=== PATIENT | male | born 1965 | race Caucasian/White ===

== ENCOUNTER 2016-06-22 09:04 | Observation (INO) | payer OTHER ==
[2016-06-22] MEDS ORDERED: Sodium Chloride 0.9% 10 ML Syringe FLUSH PRN (10:11)
[2016-06-22] MEDS ORDERED: Sodium Chloride 0.9% 1,000 ML IV SCH (10:15)
[2016-06-22] MEDS ORDERED: Propofol 200 MG/20 ML SDV ONE (10:47)
[2016-06-22] MEDS ORDERED: Midazolam 1 MG/ML 2 ML SDV ONE (10:47)
[2016-06-22] MEDS ORDERED: fentaNYL 100 MCG/2 ML SDV ONE (10:47)
--- NOTE | 2016-06-22 10:56 | EDM.PDOC ---
ED HPI GI/ABDOMINAL - General Chief Complaint: Gastrointestinal Problem Stated Complaint: LIGHT HEADED/BLACK STOOLS/VOMITING Time Seen by Provider: 06/22/16 09:30 Source: Reports: Patient, Family History Limitations: Reports: No limitations - History of Present Illness INITIAL COMMENTS - FREE TEXT/NARRATIVE: This patient comes to the ER because he just felt really bad. He has a history of esophageal varices and previous upper GI bleed. Last night he had a large melanotic stool. Also had a melanotic stool about a week ago. This morning at 4 AM he vomited some black material. Later this morning his said he seemed really sweaty and his face was white as a sheet. Patient says he feels a little bit better lying down right now but not much more. Last summer he had an upper GI bleeding required blood transfusions had some esophageal varices which were banded. He had a followup EGD in about January last year and the bands were gone everything seemed stable. 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 He does say he has a little bit of chest discomfort in the right upper part of the chest but that's chronic no different today. He also notes a sore throat for about the past 3 months he has been hoarse and he coughs up a lot of stuff every day and he's supposed to see an ENT doctor for that. - Related Data Allergies/ADRs: Allergies Allergy/AdvReac Type Severity Reaction Status Date / Time No Known Allergies Allergy Verified 09/24/15 12:26 Home Meds: Home Meds Fluticasone Furoate [Flonase Sensimist] 15.8 ml NS DAILY 06/22/16 [History] Metoprolol Succinate [Toprol XL] 400 mg PO DAILY 06/22/16 [History] glipiZIDE [Glipizide] 10 mg PO BID 06/22/16 [History] metFORMIN [Glucophage] 1,000 mg PO BID 06/22/16 [History] Past Medical History HEENT History: Reports: Impaired vision Cardiovascular History: Reports: Afib, Heart Failure, Hypertension, Other (see below) Other Cardiovascular History: mitral valve insufficiency, hypertrophic cardiomyopathy Gastrointestinal History: Reports: Other (see below) Other Gastrointestinal History: GI bleed September 2015 Musculoskeletal History: Reports: Gout Endocrine/Metabolic History: Reports: Diabetes, type II - Infectious Disease History Infectious Disease History: Reports: Chicken pox, Measles, Mumps - Past Surgical History GI Surgical History: Reports: EGD Social & Family History - Tobacco Use Smoking Status *Q: Current Every Day Smoker Years of Tobacco use: 30 Packs/Tins Daily: 0.5 - Caffeine Use Caffeine Use: Reports: Coffee, Soda - Recreational Drug Use Recreational Drug Use: No ED ROS GENERAL - Review of Systems Review Of Systems: ROS reveals no pertinent complaints other than HPI. ED EXAM, GI/ABD - Physical Exam Exam: See Below Exam Limited By: No limitations General Appearance: alert, WD/WN, moderate distress, other (Face is pink but low blood pressure is noted. He's very diaphoretic.) Eyes: bilateral: normal appearance, EOMI Throat/Mouth: Normal inspection, Other (Voice worse) Head: atraumatic Neck: normal inspection Respiratory/Chest: lungs clear Cardiovascular: normal peripheral pulses, regular rate, rhythm GI/Abdominal: soft, non tender Rectal (Males) Exam: Deferred Extremities: normal inspection Neurological: alert, oriented, CN II-XII intact, no motor/sensory deficits Psychiatric: normal affect Skin Exam: Warm, Diaphoretic Course - Vital Signs Last Recorded V/S: Last Vital Signs Temp 36.6 C 06/22/16 12:05 Pulse 99 06/22/16 12:10 Resp 17 06/22/16 12:10 BP 101/73 06/22/16 12:10 Pulse Ox 99 06/22/16 12:10 - Orders/Labs/Meds Orders: Active Orders 24 hr Category Date Time Status Patient Status [ADT] Routine ADT 06/22/16 11:24 Active EKG Documentation Completion [RC] ASDIRECTED Care 06/22/16 10:16 Active Intake and Output [RC] QSHIFT Care 06/22/16 11:24 Active Oxygen Therapy [RC] PRN Care 06/22/16 11:24 Active Pulse Oximetry [RC] CONTINUOUS Care 06/22/16 11:24 Active Up ad Osiris [RC] ASDIRECTED Care 06/22/16 11:19 Active Vital Signs [RC] PER UNIT ROUTINE Care 06/22/16 11:24 Active Nothing Per Oral Diet [DIET] Diet 06/22/16 Lunch Active BASIC METABOLIC PANEL,BMP [CHEM] AM Lab 06/23/16 05:11 Ordered PATIENT RETYPE [BBK] Stat Lab 06/22/16 10:15 Results RED BLOOD CELLS LP [BBK] Stat Lab 06/22/16 10:15 Results TYPE AND SCREEN [BBK] Stat Lab 06/22/16 10:15 Results UA W/MICROSCOPIC [URIN] Urgent Lab 06/22/16 10:10 Uncollected Acetaminophen [Tylenol] Med 06/22/16 11:19 Active 650 mg PO Q6H PRN Benzocaine/Cetylpyrd/Menthol [Cepacol Sore Throat] Med 06/22/16 11:19 Active 1 lozenge MUCMEM Q1H PRN Docusate Sodium [Colace] Med 06/22/16 11:19 Active 100 mg PO BID PRN Docusate Sodium/Sennosides [Senna Plus] Med 06/22/16 11:19 Active 1 tab PO BID PRN Promethazine [Phenergan] Med 06/22/16 11:19 Active 25 mg IM Q6H PRN Sodium Chloride 0.9% [Normal Saline] 1,000 ml Med 06/22/16 11:30 Active IV ASDIRECTED Sodium Chloride 0.9% [Saline Flush] Med 06/22/16 10:11 Active 10 ml FLUSH ASDIRECTED PRN Zolpidem [Ambien] Med 06/22/16 11:19 Active 5 mg PO BEDTIME PRN diphenhydrAMINE [Benadryl] Med 06/22/16 11:19 Active 50 mg IVPUSH Q4H PRN Saline Lock Insert [OM.PC] Urgent Oth 06/22/16 10:10 Ordered Resuscitation Status Routine Resus Stat 06/22/16 11:19 Ordered EKG 12 Lead [EK] Urgent Ther 06/22/16 10:16 Ordered Medication Orders Acetaminophen (Tylenol) 650 mg PO Q6H PRN PRN Reason: Pain (mild 1-3) Benzocaine/Menthol (Cepacol Sore Throat) 1 lozenge MUCMEM Q1H PRN PRN Reason: Sore Throat Dextrose (Glutose 15) 15 gm PO ASDIRECTED PRN PRN Reason: HYPOGLYCEMIA Dextrose/Water (Dextrose 50% In Water) 50 ml IVPUSH ASDIRECTED PRN PRN Reason: HYPOGLYCEMIA Diphenhydramine HCl (Benadryl) 50 mg IVPUSH Q4H PRN PRN Reason: Itching Docusate Sodium (Colace) 100 mg PO BID PRN PRN Reason: Constipation Fluticasone Propionate (Flonase) 0 gm MCKINLEY DAILY NAINA Glipizide (Glucotrol) 10 mg PO BID NAINA Glucagon (Glucagen) 1 mg IM ASDIRECTED PRN PRN Reason: HYPOGLYCEMIA Sodium Chloride (Normal Saline) 1,000 mls @ 125 mls/hr IV ASDIRECTED NAINA Insulin Aspart (Novolog) 0 - 8 unit SUBCUT QID PRN; Protocol PRN Reason: MEDIUM CORRECTIONAL DOSE Last Admin: 06/22/16 12:06 Dose: 3 units Metformin HCl (Glucophage) 1,000 mg PO [facility]ALS [facility] Promethazine HCl (Phenergan) 25 mg IM Q6H PRN PRN Reason: Nausea Senna/Docusate Sodium (Senna Plus) 1 tab PO BID PRN PRN Reason: Constipation Sodium Chloride (Saline Flush) 10 ml FLUSH ASDIRECTED PRN PRN Reason: Keep Vein Open Zolpidem Tartrate (Ambien) 5 mg PO BEDTIME PRN PRN Reason: Insomnia Labs: Laboratory Tests 06/22/16 06/22/16 06/22/16 Range/Units 10:10 10:15 10:15 WBC 14.1 H (4.5-11.0) K/uL RBC 4.35 (4.30-5.90) M/uL Hgb 12.0 D (12.0-15.0) g/dL Hct 37.2 L (40.0-54.0) % MCV 86 (80-98) fL MCH 28 (27-31) pg MCHC 32 (32-36) % Plt Count 247 (150-400) K/uL Neut % (Auto) 64 (36-66) % Lymph % (Auto) 21 L (24-44) % [place] % (Auto) 10 H (2-6) % Eos % (Auto) 4 (2-4) % Baso % (Auto) 1 (0-1) % PT 12.9 H (9.5-12.0) sec INR 1.21 H (0.80-1.20) APTT 26.3 L (27.0-36.0) sec Sodium 141 (140-148) mmol/L Potassium 4.9 (3.6-5.2) mmol/L Chloride 104 (100-108) mmol/L Carbon Dioxide 21 (21-32) mmol/L Anion Gap 15.9 H (5.0-14.0) mmol/L BUN 33 H D (7-18) mg/dL Creatinine 0.9 (0.8-1.3) mg/dL Est Cr Clr Drug Dosing 112.90 mL/min Estimated GFR (MDRD) > 60 (>60) Glucose 215 H (74-106) mg/dL Calcium 8.8 (8.5-10.1) mg/dL Total Bilirubin 1.4 H (0.2-1.0) mg/dL AST 26 (15-37) U/L ALT 37 (12-78) U/L Alkaline Phosphatase 53 (46-116) U/L Troponin I < 0.017 (0.000-0.056) ng/mL Total Protein 7.8 (6.4-8.2) g/dL Albumin 3.5 (3.4-5.0) g/dL Globulin 4.3 H (2.3-3.5) g/dL Albumin/Globulin Ratio 0.8 L (1.2-2.2) Blood Type Gel Antibody Screen Crossmatch 06/22/16 Range/Units 10:15 WBC (4.5-11.0) K/uL RBC (4.30-5.90) M/uL Hgb (12.0-15.0) g/dL Hct (40.0-54.0) % MCV (80-98) fL MCH (27-31) pg MCHC (32-36) % Plt Count (150-400) K/uL Neut % (Auto) (36-66) % Lymph % (Auto) (24-44) % [place] % (Auto) (2-6) % Eos % (Auto) (2-4) % Baso % (Auto) (0-1) % PT (9.5-12.0) sec INR (0.80-1.20) APTT (27.0-36.0) sec Sodium (140-148) mmol/L Potassium (3.6-5.2) mmol/L Chloride (100-108) mmol/L Carbon Dioxide (21-32) mmol/L Anion Gap (5.0-14.0) mmol/L BUN (7-18) mg/dL Creatinine (0.8-1.3) mg/dL Est Cr Clr Drug Dosing mL/min Estimated GFR (MDRD) (>60) Glucose (74-106) mg/dL Calcium (8.5-10.1) mg/dL Total Bilirubin (0.2-1.0) mg/dL AST (15-37) U/L ALT (12-78) U/L Alkaline Phosphatase (46-116) U/L Troponin I (0.000-0.056) ng/mL Total Protein (6.4-8.2) g/dL Albumin (3.4-5.0) g/dL Globulin (2.3-3.5) g/dL Albumin/Globulin Ratio (1.2-2.2) Blood Type A POSITIVE Gel Antibody Screen Negative Crossmatch See Detail Meds: Medications Generic Name Dose Route Start Last Admin Trade Name Freq PRN Reason Stop Dose Admin Acetaminophen 650 mg 06/22/16 11:19 Tylenol PO Q6H PRN Pain (mild 1-3) Benzocaine/Menthol 1 lozenge 06/22/16 11:19 Cepacol Sore Throat MUCMEM Q1H PRN Sore Throat Dextrose 15 gm 06/22/16 12:11 Glutose 15 PO ASDIRECTED PRN HYPOGLYCEMIA Dextrose/Water 50 ml 06/22/16 12:11 Dextrose 50% In Water IVPUSH ASDIRECTED PRN HYPOGLYCEMIA Diphenhydramine HCl 50 mg 06/22/16 11:19 Benadryl IVPUSH Q4H PRN Itching Docusate Sodium 100 mg 06/22/16 11:19 Colace PO BID PRN Constipation Fluticasone Propionate 0 gm 06/23/16 09:00 Flonase MCKINLEY DAILY NAINA Glipizide 10 mg 06/22/16 21:00 Glucotrol PO BID NAINA Glucagon 1 mg 06/22/16 12:11 Glucagen IM ASDIRECTED PRN HYPOGLYCEMIA Sodium Chloride 1,000 mls @ 125 mls/hr 06/22/16 11:30 Normal Saline IV ASDIRECTED NAINA Insulin Aspart 0 - 8 unit 06/22/16 12:03 06/22/16 12:06 Novolog SUBCUT 3 units QID PRN Administration MEDIUM CORRECTIONAL DOSE Protocol Metformin HCl 1,000 mg 06/22/16 17:00 Glucophage PO BIDMEALS NAINA Promethazine HCl 25 mg 06/22/16 11:19 Phenergan IM Q6H PRN Nausea Senna/Docusate Sodium 1 tab 06/22/16 11:19 Senna Plus PO BID PRN Constipation Sodium Chloride 10 ml 06/22/16 10:11 Saline Flush FLUSH ASDIRECTED PRN Keep Vein Open Zolpidem Tartrate 5 mg 06/22/16 11:19 Ambien PO BEDTIME PRN Insomnia Discontinued Medications Generic Name Dose Route Start Last Admin Trade Name Freq PRN Reason Stop Dose Admin Fentanyl Confirm 06/22/16 10:47 Sublimaze Administered 06/22/16 10:48 Dose 100 mcg .ROUTE .STK-MED ONE Sodium Chloride 1,000 mls @ 999 mls/hr 06/22/16 10:15 Normal Saline IV ASDIRECTED NAINA Midazolam HCl Confirm 06/22/16 10:47 Versed 1 Mg/Ml Administered 06/22/16 10:48 Dose 2 mg .ROUTE .STK-MED ONE Propofol Confirm 06/22/16 10:47 Diprivan 20 Ml Administered 06/22/16 10:48 Dose 200 mg .ROUTE .STK-MED ONE - Re-Assessments/Exams Free Text/Narrative Re-Assessment/Exam: 06/22/16 10:56 An IV was established and we began a 1 L bolus of IV normal saline. After only about 200 mL his blood pressure to come up to about 150. Initially we did put his head down somewhat and that alone helped even prior to the IV fluids. Initial hemoglobin is a little bit above 12. I alerted Dr. Covarrubias and Dr. Patrick Nguyen like to go ahead and take him back and scope him now. He is hemoglobin looks like it is stable his blood pressure now is stable we did have 2 units which we were doing a cross match but will hold them. An EKG was done so far I don't have an old to compare with but I don't see anything that looks like an acute [place]. A troponin and other labs are pending Dr. Nguyen is aware of his history his cardiac history. We aren't obtaining records from [place]. Free Text/Narrative Re-Assessment/Exam: 06/22/16 12:16 Dr. Nguyen came to see this patient in the emergency department and took him back to do an emergency endoscopy. The patient appear to be hemodynamically stable upon leaving the ER. Dr. Nguyen he found evidence of a recent esophageal bleeding but nothing active. He admitted him and will observe him overnight Departure - Departure Time of Disposition: 12:17 Disposition: Admitted As Inpatient 66 Condition: fair Clinical Impression: Upper GI bleed - My Orders Last 24 Hours: My Active Orders 06/22/16 10:10 UA W/MICROSCOPIC [URIN] Urgent Saline Lock Insert [OM.PC] Urgent 06/22/16 10:11 Sodium Chloride 0.9% [Saline Flush] 10 ml FLUSH ASDIRECTED PRN 06/22/16 10:15 PATIENT RETYPE [BBK] Stat RED BLOOD CELLS LP [BBK] Stat TYPE AND SCREEN [BBK] Stat 06/22/16 10:16 EKG Documentation Completion [RC] ASDIRECTED EKG 12 Lead [EK] Urgent - Assessment/Plan Last 24 Hours: My Active Orders 06/22/16 10:10 UA W/MICROSCOPIC [URIN] Urgent Saline Lock Insert [OM.PC] Urgent 06/22/16 10:11 Sodium Chloride 0.9% [Saline Flush] 10 ml FLUSH ASDIRECTED PRN 06/22/16 10:15 PATIENT RETYPE [BBK] Stat RED BLOOD CELLS LP [BBK] Stat TYPE AND SCREEN [BBK] Stat 06/22/16 10:16 EKG Documentation Completion [RC] ASDIRECTED EKG 12 Lead [EK] Urgent
[2016-06-22] MEDS ORDERED: Promethazine 25 MG/ML SDV IM PRN (11:19)
[2016-06-22] MEDS ORDERED: Zolpidem 5 MG Tab PO PRN (11:19)
[2016-06-22] MEDS ORDERED: Docusate Sodium 100 MG Cap PO PRN (11:19)
[2016-06-22] MEDS ORDERED: Benzocaine/Cetylpyridinium/Menthol Lozenge MUCMEM PRN (11:19)
[2016-06-22] MEDS ORDERED: diphenhydrAMINE 50 MG/ML SDV IVPUSH PRN (11:19)
[2016-06-22] MEDS ORDERED: Acetaminophen 325 MG Tab PO PRN (11:19)
[2016-06-22] MEDS: Insulin Aspart 100 Units/ML 3 ML Pen SUBCUT PRN ×3 (12:06→21:09)
[2016-06-22] MEDS ORDERED: Glucagon,Human Recombinant 1 MG Vial IM PRN (12:11)
[2016-06-22] MEDS ORDERED: Glucose Gel 15 GM in 37.5 GM Tube PO PRN (12:11)
[2016-06-22] MEDS ORDERED: 50% Dextrose in Water 50 ML Syringe IVPUSH PRN (12:11)
--- NOTE | 2016-06-22 14:23 | CONS ---
DATE OF SERVICE: 06/22/2016 REASON FOR CONSULTATION: Evaluation of GI bleeding. HISTORY OF PRESENT ILLNESS: This is a 51-year-old male seen in the emergency room for consultation from Dr. Styles and Dr. Covarrubias for evaluation of GI bleeding. The patient has a history of esophageal bleeding requiring esophageal clipping. Over the last 24 hours, the patient has been monitored for melenic stool. This is very similar to his previous events. This was banded last January and had a followup EGD, which did not show any abnormalities. The patient also complaints of sore throat for which he is being evaluated in addition to this. PAST MEDICAL HISTORY: Atrial fibrillation, heart failure, hypertension, mitral valve insufficiency, hypertrophic cardiomyopathy, GI bleed, gout, type 2 diabetes. SOCIAL HISTORY: He is currently a smoker. FAMILY HISTORY: Noncontributory. REVIEW OF SYSTEMS: GENERAL: The patient is appropriately resting. HEENT: No symptoms. CARDIOVASCULAR: No chest pain. RESPIRATORY: No shortness of breath. GASTROINTESTINAL: As above. GENITOURINARY: No dysuria. The remainder of the systems are reviewed and negative. PHYSICAL EXAMINATION: VITAL SIGNS: Temperature afebrile, blood pressure 151/100, pulse 80, respirations 12, 100% on room air. HEENT: Pupils are equal, round, and reactive to light. NECK: Supple and nontender. CARDIOVASCULAR: Regular rate. RESPIRATORY: Lungs are clear to consultation bilaterally. ABDOMEN: Bowel sounds positive. EXTREMITIES: Full range of motion. Strength 5/5. NEUROLOGIC: Oriented x3. PSYCH: No gross depression. LABORATORY RESULTS: Show hemoglobin 12.0. ASSESSMENT/PLAN: Esophageal bleed. PLAN: The patient will be taken to the operating room for EGD. We discussed risks, benefits, alternatives, and limitations, including, but not limited to infection, bleeding, and perforation. The patient and family understand these risks and wished to proceed. Luis Carlos Nguyen MD /[id number]
--- NOTE | 2016-06-22 14:23 | OR ---
DATE OF PROCEDURE: 06/22/2016 PROCEDURE: Esophagogastroduodenoscopy. FINDINGS: 1. Old blood noted. 2. No evidence of active bleeding (no active esophageal varices bleeding, no bleeding in the gastric antrum or duodenum). 3. Large amount of retained food particles noted in stomach, but no active or new blood. COMPLICATIONS: None. HOSPITAL AIDE: None. PROCEDURE IN DETAIL: The patient was placed in left lateral decubitus position. The EGD scope was introduced and advanced atraumatically to the second part of the duodenum. The scope was retroflexed. There was no abnormalities except the large amount of old/clotted blood noted in the gastric body. Multiple suction irrigation techniques were attempted to remove this blood but is unfortunately unable to be performed due to the large consistency. Irrigation techniques were also attempted to remove the clot. The esophagus and its associated junction were inspected multiple times. There was no active bleeding. There was no definitive or offending esophageal culprit could be identified. The remainder of esophagus was normal. The patient tolerated the procedure well. Luis Carlos Nguyen MD /[id number]
[2016-06-22] MEDS: metFORMIN 500 MG Tab PO SCH (17:16)
[2016-06-22] MEDS ORDERED: Sodium Chloride 0.9% 1,000 ML IV ONE (18:54)
[2016-06-22] MEDS ORDERED: Lidocaine 2% Jelly 10 ML Urojet MUCMEM ONE (19:00)
[2016-06-22] MEDS ORDERED: Non-Formulary Medication 1 Each (Metformin [Glucophage] 1,000 MG) PO SCH (21:00)
[2016-06-22] MEDS: glipiZIDE 5 MG Tab PO SCH (21:07)
[2016-06-23] MEDS: Sodium Chloride 0.9% 1,000 ML IV SCH ×2 (01:08→18:00)
[2016-06-23] MEDS: Insulin Aspart 100 Units/ML 3 ML Pen SUBCUT PRN ×2 (08:29→11:56)
[2016-06-23] MEDS: Fluticasone Propionate Nasal Spray 16 GM Bottle NAS SCH (08:30)
[2016-06-23] MEDS ORDERED: FLUTICASONE FUROATE NS SCH (09:00)
[2016-06-23] MEDS ORDERED: Fluticasone Propionate Nasal Spray 16 GM Bottle NAS SCH (09:00)
[2016-06-23] MEDS: glipiZIDE 5 MG Tab PO SCH ×3 (11:21→21:43)
[2016-06-23] MEDS: metFORMIN 500 MG Tab PO SCH ×3 (11:21→16:52)
--- NOTE | 2016-06-23 13:16 | PN ---
DATE OF SERVICE: 06/23/2016 SUBJECTIVE: The patient has greatly improved overnight. He is stating that he is not passing dark-colored stools anymore. He has no abdominal pain. He is tolerating a diet and resting comfortably. Also, his feelings of dizziness have subsequently abated. OBJECTIVE: VITAL SIGNS: Stable. Last blood pressure is 130/62. Pulse is still slightly tachycardic, but also improved. CARDIOVASCULAR: Regular rhythm and rate. RESPIRATORY: Lungs clear to consultation bilaterally. ABDOMEN: Nontender and nondistended. No rebound. No guarding. LABORATORY RESULTS: Hemoglobin greater than 10.5. ASSESSMENT: GI bleed. PLAN: We will continue the same course of action with a hemoglobin in approximately 6 hours. He is to continue his diet as is tolerated, increase activity. We will recheck his hemoglobin. Luis Carlos Nguyen MD /[id number]
[2016-06-24] MEDS: glipiZIDE 5 MG Tab PO SCH ×2 (09:05→21:10)
[2016-06-24] MEDS: Fluticasone Propionate Nasal Spray 16 GM Bottle NAS SCH (09:05)
[2016-06-24] MEDS: metFORMIN 500 MG Tab PO SCH ×2 (09:05→17:07)
[2016-06-24] MEDS: Insulin Aspart 100 Units/ML 3 ML Pen SUBCUT PRN (12:14)
--- NOTE | 2016-06-24 13:14 | PN ---
DATE OF SERVICE: 06/24/2016 SUBJECTIVE: The patient continues to do well. He subjectively feels significantly better compared to yesterday. He is passing gas but has not had a bowel movement. OBJECTIVE: VITAL SIGNS: Stable. He is afebrile. Blood pressure 139/79, pulse 93, respirations 16, and 97% on room air. CARDIOVASCULAR: Regular rhythm and rate. RESPIRATORY: Lungs are clear to auscultation bilaterally. ABDOMEN: Bowel sounds are positive. He is nontender and nondistended. No rebound or guarding. LABORATORY RESULTS: Show a hemoglobin of 10.1. ASSESSMENT: Esophageal variceal bleeding. PLAN: The patient both subjectively and objectively continues to improve on a daily basis. His hemoglobin is stable. He did receive transfusion; however, he is not having any hematemesis any further. In addition, his objective vital signs such as his blood pressure and pulse are also improving. Therefore, the plan for today will be to change to q.12 hours hemoglobins. We will not transfuse him today as we will see what his trend does. He has not had a bowel movement in approximately 24 hours. We will help, give some bowel stimulation for this. Luis Carlos Nguyen MD /[id number]
[2016-06-24] MEDS: Metoprolol Succinate 50 MG Tab.ER PO SCH (13:18)
[2016-06-24] MEDS ORDERED: Furosemide 20 MG/2 ML VIAL IVPUSH ONE (22:47)
[2016-06-25 07:34] VITALS: BP 137/71
[2016-06-25] MEDS: glipiZIDE 5 MG Tab PO SCH (08:02)
[2016-06-25] MEDS: metFORMIN 500 MG Tab PO SCH (08:02)
[2016-06-25] MEDS: Metoprolol Succinate 50 MG Tab.ER PO SCH (08:03)
[2016-06-25] MEDS: Fluticasone Propionate Nasal Spray 16 GM Bottle NAS SCH (08:04)
[2016-06-25] MEDS: Insulin Aspart 100 Units/ML 3 ML Pen SUBCUT PRN (08:06)
--- NOTE | 2016-06-25 08:08 | PN ---
DATE OF SERVICE: 06/25/2016 SUBJECTIVE: The patient is doing very well today. He is having bowel movements, which are non-bloody. No abdominal pain. OBJECTIVE: VITAL SIGNS: Stable. Temperature 99.6, blood pressure 118/59, pulse 92, respirations 18, 95% on room air. CARDIOVASCULAR: Regular rhythm and rate. RESPIRATORY: Lungs are clear to auscultation bilaterally. ABDOMEN: Bowel sounds are positive. LABORATORY RESULTS: Show a hemoglobin of 10.2. ASSESSMENT: Gastrointestinal bleed. PLAN: The patient will be discharged today. His hemoglobin has improved significantly and has remained stable for the last 24 hours without and transfusions. He is to follow up on with me in the clinic for repeat hemoglobin. Please see discharge summary for further details. Luis Carlos Nguyen MD /[id number]
--- NOTE | 2016-06-25 08:14 | DISCH ---
DISCHARGE DIAGNOSIS: Gastrointestinal bleeding. HOSPITAL COURSE: A 51-year-old male, who was admitted due to GI bleeding. The patient underwent an EGD, which showed esophageal bleeding, but no active bleeding at that time. The patient was subsequently transfused a total of 4 units of packed red blood cells. Prior to discharge, a 24 hours of stable hemoglobin level. He had no further GI bleeding. He is tolerating diet and having bowel movements. Followup on with hemoglobin recheck. The patient is also instructed if has any signs and symptoms of ongoing GI bleeding, he is to call or present to the emergency room immediately. DISCHARGE MEDICATIONS: Are the same as admission medication. No additional medications.
[2016-06-25] MEDS ORDERED: Pneumococcal Polyvalent-23 Vaccine 0.5 ML SDV IM ONE (12:00)
== END 2016-06-25 08:20 | disposition home or self-care (01) ==
LOC: JP.ED 09:04 → JP.SDS 10:46 → JP.MS 11:24
PROVIDERS: ADMIT Surgery; ATTEND Surgery
DX: T18.2XXA Foreign body in stomach, initial encounter (principal); I10 Essential (primary) hypertension; E11.9 Type 2 diabetes mellitus without complications; Z79.899 Other long term (current) drug therapy; F17.210 Nicotine dependence, cigarettes, uncomplicated; K92.2 Gastrointestinal hemorrhage, unspecified; J38.7 Other diseases of larynx
CPT/HCPCS: 36415; 36430; 43235; 70491; 71260; 80048; 80053; 82962; 84484; 85018; 85025; 85027; 85610; 85730; 86850; 86900; 86901; 86920; 86922; 93005; 94762; 96360; 96361; 96374; 99285; A9270; G0378; J1940; J2250; J2704; J3010; J7030; J7040; J7050; P9016; P9017